=== PATIENT | female | born 1940 | race American Indian/Alaskan Native ===

== ENCOUNTER 2020-08-15 10:49 | Outpatient (CLI) | payer MEDICARE ==
--- NOTE | 2020-08-15 13:30 | Magnetic Resonance Report ---
Bilateral breast MR without and with contrast. History: Recently diagnosed left breast malignancy, assess extent of disease. Recent benign left 12:0 0 biopsies of breast x2. Comparison: We have outside reports from ultrasound guided biopsy performed 07/19/2020 and stereotact ic biopsy performed 07/19/2020. No images are available at this time. Technique: Multiplanar multisequence MR images of the breast were obtained before and after the intra venous administration of intravenous contrast. Post processing analysis and review was performed on a separate computer workstation. Findings: Breast composition is heterogenously dense. There is marked background parenchymal enhancement which decreases the sensitivity of MRI. Patient has known biopsy-proven findings consistent with diabetic m astopathy. The which can cause diffuse parenchymal enhancement which can be difficult to distinguish from carcinoma. LEFT BREAST: Focal area of enhancement with adjacent biopsy artifact in the superior central posterio r left breast measures up to 1.1 x 0.9 x 1.3 cm. This would appear to correspond with the site of filemon reotactic biopsy which was performed at an outside facility which revealed invasive ductal carcinoma. Additionally, the patient is reported to have underwent two benign biopsies of the left breast at th e 12:30 position (9 cm and 5 cm from the nipple). Although, the clip artifact in these regions is dif ficult to definitely identified. There are confluent areas of low level enhancement throughout the le ft breast which is most consistent with parenchymal enhancement, possibly is accentuated due to diabe tic mastopathy. This is most pronounced within the superior and upper inner breast. RIGHT BREAST: Confluent areas of scattered parenchymal enhancement and multiple scattered enhancing f oci are present. There is a focal more circumscribed oval area of enhancement within the right upper outer posterior breast. This measures 1.6 x 0.9 x 1.5 cm. No abnormal axillary or internal mammary lymph nodes. Impression: Focal area of malignant-appearing enhancement in the left superior central posterior breast measures up to 1.3 cm on MRI. An associated biopsy marker is noted and this would appear to correspond with th e site of recent stereotactic biopsy at an outside facility which revealed invasive ductal carcinoma. No additional suspicious findings in the left breast, however evaluation is limited due to the marke d background parenchymal enhancement. 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 The can cause diffuse parenchymal enhancement which can be difficult to d istinguish from carcinoma. Located within the right upper outer breast is a 1.6 cm oval circumscribed enhancing lesion. A target ed ultrasound is recommended for further evaluation with possible subsequent ultrasound-guided biopsy . For localization purposes, the right breast should be scanned focused around the 10:00 position, 9 cm from the nipple. If no sonographic correlate is identified, an MRI guided biopsy would be recommen ded. BIRADS 0: Incomplete--Needs Additional Imaging Evaluation. Signer Name: Jacinto Jean MD Signed: 08/15/2020 1:30 PM Workstation Name: [id number]
== END 2020-08-15 10:50 | disposition home or self-care (01) ==
LOC: SPVIMAG 10:49
PROVIDERS: ATTEND Surgery
DX: C50.412 Malignant neoplasm of upper-outer quadrant of left female breast (principal)
CPT/HCPCS: A9577; C8908; 77049

== ENCOUNTER 2020-09-05 14:26 | Outpatient (CLI) | payer MEDICARE ==
--- NOTE | 2020-09-05 15:41 | Ultrasound Report ---
RIGHT BREAST ULTRASOUND LIMITED INDICATION: Evaluate finding noted previously in the right breast on MRI. COMPARISON: 08/15/2020. FINDINGS: Targeted ultrasound of the right upper outer breast was performed to evaluate the site of a previously noted finding which was seen in this region on the recent screening mammogram. Located at the 10:00 position, 9 cm from the nipple, is a partially circumscribed oval 8 x 9 x 4 mm hypoechoic solid-appearing mass. This would appear to correspond with the location and morphology of the MRI fin ding seen in this region on the recent breast MRI. The surrounding tissue was scanned and shows some vague shadowing hypoechoic areas but no discrete mass. These were difficult to reproduce. The appeara nce may reflect some degree of diabetic mastopathy which the patient is reported to have. IMPRESSION: Right breast lesion at the 10:00 position appears to correspond with the enhancing lesion seen on martha ast MRI. An ultrasound-guided biopsy is planned for later this same day. Findings and recommendations were discussed with patient the conclusion of the exam by Dr. Jean. BI-RADS Category 4: Suspicious for Malignancy. Signer Name: Jacinto Jean MD Signed: 09/05/2020 3:36 PM Workstation Name: [id number]
--- NOTE | 2020-09-05 16:00 | Ultrasound Report ---
ULTRASOUND-GUIDED CORE NEEDLE BIOPSY Right BREAST WITH CLIP PLACEMENT INDICATION: Right breast lesion at the 10:00 position. FINDINGS: Informed consent was obtained. The lesion within the right breast at the 10:00 position was identifie d with ultrasound. The overlying skin was cleansed with chloro prep and local anesthesia was obtained with a 1% lidocaine solution. Under ultrasound guidance a 14-gauge spring loaded core biopsy needle was advanced to the lesion. A total of 4 core samples were obtained. A U-shaped biopsy marker was jered radha to roshan the site of the biopsy. Specimen samples were placed in formalin and sent to pathology fo r analysis. Patient tolerated the procedure well and no immediate complications were identified. IMPRESSION: Technically successful ultrasound-guided core biopsy of right breast lesion at the 10:00 position wit h placement of a U-shaped biopsy marker. An addendum will be added to this report once pathology results are available. Signer Name: Jacinto Jean MD Signed: 09/05/2020 3:56 PM Workstation Name: [id number]
--- NOTE | 2020-09-05 16:02 | Mammography Report ---
RIGHT DIAGNOSTIC MAMMOGRAM INDICATION: Status post right breast ultrasound-guided biopsy at the 10:00 position. COMPARISON: 09/05/2020, 08/15/2020. FINDINGS: Right breast CC and ML projection mammograms were obtained. These document a U-shaped biops y marker at the 10:00 position at site of recent ultrasound-guided biopsy. IMPRESSION: Right breast mammographic images documenting location of a U-shaped biopsy marker at the 10:00 positi on (site of recent ultrasound-guided core biopsy). BI-RADS Category 4: Suspicious for Malignancy. Signer Name: Jacinto Jean MD Signed: 09/05/2020 3:58 PM Workstation Name: [id number]
== END 2020-09-05 14:27 | disposition home or self-care (01) ==
LOC: SPVWC 14:26
PROVIDERS: ATTEND Surgery
DX: N63.11 Unspecified lump in the right breast, upper outer quadrant (principal); R92.8 Other abnormal and inconclusive findings on diagnostic imaging of breast; N60.81 Other benign mammary dysplasias of right breast; N64.89 Other specified disorders of breast
CPT/HCPCS: 88305

== ENCOUNTER 2020-10-08 07:49 | Day surgery (SDC) | payer MEDICARE ==
[~2020-10-08 07:49] MED LIST: ceFAZolin/Water 2 GM/20 ML 2 GM/20 ML SYRINGE IV NR
[2020-10-08] MEDS ORDERED: HYDROmorphone 1 MG/1 ML INJ IV PRN ×2 (08:32)
[2020-10-08] MEDS ORDERED: fentaNYL 100 MCG/2 ML INJ IV NR (08:39)
--- NOTE | 2020-10-08 08:40 | Anesthesia Day of Surgery ---
Anesthesia Day of Surgery - Day of Surgery Patient Examined: Yes Patient H&P Reviewed: Yes Patient is NPO: Yes
--- NOTE | 2020-10-08 08:44 | Anesthesia Consultation ---
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
[2020-10-08] MEDS ORDERED: LIDOCAINE (1%) 10 MG/1 ML VIAL 20 ML MDV ONE (08:45)
[2020-10-08] MEDS ORDERED: ONDANSETRON 4 MG/2 ML INJ IV PRN (09:00)
[2020-10-08] MEDS ORDERED: MIDAZOLAM 2 MG/2 ML INJ IV NR (09:00)
[2020-10-08] MEDS ORDERED: LACTATED RINGERS 1,000 ML IV SCH (09:00)
[2020-10-08] MEDS ORDERED: BUPIVACAINE/PF (0.25%) 2.5 MG/ML 30 ML VIAL INFILTRATI ONE (09:45)
--- NOTE | 2020-10-08 10:51 | Short Stay Summary ---
Short Stay Documentation Date of service: 10/08/20 - History H&P: obtained from office - Allergies and Medications Current Medications: Allergies No Known Allergies Allergy (Unverified 10/02/20 08:19) Home Medications Medication Instructions Recorded Confirmed Last Taken Type Insulin Degludec/Liraglutide 16 unit SQ HS 10/03/20 10/03/20 10/07/20 History [Xultophy 100 Unit-3.6MG/ml Pen] Metoprolol [Lopressor TAB] 75 mg PO BID 10/03/20 10/08/20 10/08/20 06:00 History Potassium Chloride [K-Dur] 10 meq PO QDAY 10/03/20 10/03/20 10/07/20 History Rosuvastatin Calcium [Crestor] 10 mg PO HS 10/03/20 10/03/20 10/07/20 History Telmisartan/Amlodipine 1 tab PO DAILY 10/03/20 10/03/20 10/07/20 History [Telmisartan-Amlodipine 80-10] hydroCHLOROthiazide [HCTZ] 25 mg PO QDAY 10/03/20 10/03/20 10/07/20 History metFORMIN [Glucophage] 500 mg PO BID 10/03/20 10/03/20 10/07/20 History Active Medications Hydromorphone HCl (Hydromorphone 1 Mg/1 Ml Inj) 0.25 mg IV Q10MIN PRN PRN Reason: Pain, Moderate (4-6) Stop: 10/08/20 20:00 Hydromorphone HCl (Hydromorphone 1 Mg/1 Ml Inj) 0.5 mg IV Q10MIN PRN PRN Reason: Pain , Severe (7-10) Stop: 10/08/20 22:00 Cefazolin Sodium (Ancef/Sterile Water 2 Gm/20 Ml) 2 gm in 20 mls @ 80 mls/hr IV PREOP NR; Protocol Stop: 10/08/20 20:00 Lactated Ringer's (Lactated Ringers) 1,000 mls @ 125 mls/hr IV DIRECT SANJUANITA Last Admin: 10/08/20 09:38 Dose: 125 mls/hr Documented by: Midazolam HCl (Midazolam 2 Mg/2 Ml Inj) 2 mg IV PREOP NR Stop: 10/08/20 23:59 Last Admin: 10/08/20 09:38 Dose: 2 mg Documented by: Ondansetron HCl (Ondansetron 4 Mg/2 Ml Inj) 4 mg IV ONCE PRN PRN Reason: Nausea And Vomiting Stop: 10/08/20 13:00 - Brief post op/procedure progress note Date of procedure: 10/08/20 Pre-op diagnosis: Left upper outer quadrant breast cancer Post-op diagnosis: same Procedure: Left needle localization partial mastectomy of upper outer quadrant Anesthesia: GETA Findings: Left wire and clip present; x2 sln Surgeon: MUSA MORALES Estimated blood loss: minimal Pathology: list (left partial mastectomy; x sln) Specimen disposition: to lab Condition: stable - Disposition Condition at discharge: Good Disposition: DC-01 TO HOME OR SELFCARE Short Stay Discharge Plan Activity: other (no heavy lifting) Diet: regular Wound: keep clean and dry (wear breast binder; may shower in 48 hours; no baths) Additional Instructions: APPOINTMENT -DR MORALES WANTS TO SEE YOU IN 7 DAYS. CALL FOR APPOINTMENT AND FOR ANY QUESTIONS OR CONCERNS RELATED TO YOUR SURGERY. ACTIVITY - NO HEAVY LIFTING WITH RIGHT ARM DIET- REGULAR. WOUND- DO KEEP INCISION SITE CLEAN AND DRY. MAY SHOWER AFTER 2 DAYS. NO TUB BATHS. DO WEAR BREAST BINDER AT ALL TIMES (EXCEPT WHEN SHOWERING) UNTIL YOU SEE DR MORALES. PRESCRIPTION GIVEN FOR PAIN TAKE DIRECTED. Follow up with: MUSA MORALES MD [Staff Physician] - 7 Days Forms: Outpatient Surgery DC Inst. Prescriptions: oxyCODONE /ACETAMINOPHEN [Percocet 5/325] 1 tab PO Q6HR PRN #15 tablet PRN Reason: Pain
--- NOTE | 2020-10-08 10:54 | Operative Report ---
Operative Report Operative Report: Operative Report: October 08, 2020 Preoperative diagnosis: Left breast cancer of the upper outer quadrant Postoperative diagnosis: Same Procedure: Left needle localization partial mastectomy of the upper outer quadrant and SLNB Surgeon: Marielle Lackey MD [employer] Instructor: Kasandra Alaniz MD Anesthesia: General Findings: Left wire and clip present within radiograph specimen; x2 SLN Complications: None EBL: Minimal (less than 50 cc) Disposition: PACU in good condition Indications for operative procedure: This is a 79 year old lady with newly diagnosed left breast cancer of the upper outer quadrant, Stage I [id number] ER 5% and Her-2 positive (around 2:00 position posterior depth). Recommendations are to proceed with breast conservation. Radiology place wire at area of cancer. She understands the role of adjuvant radiation therapy and adjuvant chemotherapy given HER-2 positive breast cancer. She wished to proceed with the above procedure. Procedure in detail: The patient was taken to radiology for wire placement for localization of known area of cancer. Anesthesia placed left pectoral block. Patient was then taken to the operating room. Gen. anesthesia was administered. The left nipple was injected with radioisotope and 1 cc of methylene blue dye. Left breast and axilla were prepped and draped in the normal sterile operative fashion. The wire was identified. Timeout was performed. Gamma probe was inserted into the axilla. The area of hot spot was identified. A left axillary incision was made with a 15 blade knife with dissection taken down to the subcutaneous tissues. The axillary fascia was opened with the Bovie cautery. 2 SLNs were identified. All remaining counts were less than 10% of the highest count. Lymph node was sent to pathology for permanent processing. Hemostasis was obtained in the right axillary cavity. Axillary cavity was appropriately irrigated and suctioned. Hemostasis was noted. Axillary fascia was approximated and closed using interrupted 3-0 Vicryl and the skin brought together and closed using a running 4-0 Monocryl followed by skin affix. Attention was then taken towards the left breast. Lateral breast of upper outer quadrant incision was made with a 15 blade knife and dissection taken down to subcutaneous tissues. First began raising of the superior flap with removal of the wire from the skin with dissection taken down to the pectoralis muscle past the area of known malignancy, followed by raising of the inferior flap, medial flap and lateral flap with all flaps taken down to the pectoralis muscle and past the area of known malignancy. Significant fibrotic tissue was present that may represent history of diabetic mastitis. The breast area of concern was appropriately removed posteriorly from the pectoralis muscle with the aid of the Bovie cautery. The wire was not encountered. Specimen was marked and then sent to pathology and radiology; radiograph specimen with wire and clip present (additional clip present as well from prior biopsy at 12:00 position). Breast cavity was irrigated and hemostasis was obtained. The posterior deep breast tissues were approximated and closed using interrupted 3-0 Vicryl. The subcutaneous tissues were approximated and closed using interrupted 3-0 Vicryl followed by closing of the skin with a running 4-0 Monocryl and skin affix. The patient tolerated surgery very well and she was awaken from anesthesia without any complication and transported to PACU in good condition.
[2020-10-08] MEDS ORDERED: ONDANSETRON 4 MG/2 ML INJ ONE (11:02)
[2020-10-08] MEDS ORDERED: LIDOCAINE MPF (2%) 20 MG/1 ML VIAL 5 ML ONE (11:02)
[2020-10-08] MEDS ORDERED: propofoL 200 MG/20 ML VIAL IV ONE (11:03)
[2020-10-08] MEDS ORDERED: fentaNYL 100 MCG/2 ML INJ ONE (11:03)
--- NOTE | 2020-10-08 11:12 | Mammography Report ---
LEFT BREAST NEEDLE LOCALIZATION USING LEFT GUIDANCE The procedure was explained to the patient and informed consent obtained. PROCEDURE: Using 3 mL of 1% buffered lidocaine, a 25 gauge needle and x-ray guidance, the posterior left breast lesion containing a biopsy clip was localized with standard needle/wire technique. There were no immediate complications. INTERPRETATION: 2 images made during the procedure demonstrate the needle to be properly positioned. IMPRESSION: Successful left breast lesion localization as described above. Thank you for allowing us to participate in the care of your patient. Signer Name: Manoj Almodovar Jr, MD Signed: 10/08/2020 11:07 AM Workstation Name: [id number]
[2020-10-08] MEDS ORDERED: WATER FOR IRRIG STERILE 1,500 ML BOTTLE IR ONE (11:51)
[2020-10-08] MEDS ORDERED: METHYLENE BLUE 50 MG/10 ML AMP IV ONE (11:52)
[2020-10-08] MEDS ORDERED: SODIUM CHLORIDE 0.9% P/F 10 ML VIAL IV ONE (11:53)
[2020-10-08] MEDS ORDERED: PHENYLEPHRINE/NS 1,000 MCG/10 ML SYRINGE (OR USE) IV ONE (13:37)
[2020-10-08 15:31] VITALS: BP 136/63
--- NOTE | 2020-10-08 15:58 | Mammography Report ---
MAMMOGRAPHY SURGICAL SPECIMEN HISTORY: Post excisional biopsy COMPARISON: Needle localization performed earlier today. FINDINGS: A single image of the specimen containing the spiculated lesion, biopsy clip and localizati on wire is presented. A second smaller biopsy clip is noted along the right lateral margin of the spe cimen. Please correlate with the formal report from pathology. IMPRESSION: Successful excisional biopsy. Signer Name: Manoj Almodovar Jr, MD Signed: 10/08/2020 3:54 PM Workstation Name: [id number]
--- NOTE | 2020-10-08 16:29 | Post Anesthesia Evaluation ---
- Post Anesthesia Evaluation Patient Participated: Yes Airway Patent: Yes Stable Respiratory Function: Yes Nausea/Vomiting: No Temp > 96.8F: Yes Pain Manageable: Yes Adequeate Hydration: Yes Anesthesia Complications: No Block Receding Appropriately: Yes Patient on Ventilator: No
== END 2020-10-08 07:50 | disposition home or self-care (01) ==
LOC: OR 07:49
PROVIDERS: ATTEND Surgery
DX: C50.412 Malignant neoplasm of upper-outer quadrant of left female breast (principal); I89.8 Other specified noninfective disorders of lymphatic vessels and lymph nodes; E78.00 Pure hypercholesterolemia, unspecified; I10 Essential (primary) hypertension; E66.9 Obesity, unspecified; E11.9 Type 2 diabetes mellitus without complications; E06.9 Thyroiditis, unspecified; Z86.19 Personal history of other infectious and parasitic diseases; Z17.1 Estrogen receptor negative status [ER-]; Z79.899 Other long term (current) drug therapy; Z87.891 Personal history of nicotine dependence; Z79.4 Long term (current) use of insulin; Z98.49 Cataract extraction status, unspecified eye; Z90.710 Acquired absence of both cervix and uterus; Z98.890 Other specified postprocedural states; Z68.35 Body mass index [BMI] 35.0-35.9, adult
CPT/HCPCS: 19281; 19301; 38525; 38792; 76098; 78800; 82962; 88307; A9541; J0690; J2250; J2370; J2405; J2704; J3010; J7120; Q9968; U0003; 64450; 88333; 88342

== ENCOUNTER 2021-05-02 10:10 | Outpatient (CLI) | payer MEDICARE ==
--- NOTE | 2021-05-02 10:53 | Mammography Report ---
DIGITAL DIAGNOSTIC MAMMOGRAM WITH CAD, 05/02/2021 INDICATION: The patient has a personal history of left breast cancer treated with lumpectomy and radi ation. She reports no new symptoms. TECHNIQUE: Digital bilateral mammographic imaging was performed. This examination was interpreted with the benefit of Computer-aided Detection analysis. COMPARISON: Bilateral mammogram, 05/11/2020 from [facility] FINDINGS: Breast Density: The breasts are heterogeneously dense, which may obscure small masses. There is no evidence of dominant mass, suspicious calcifications or architectural distortion in eithe r breast. Interval post lumpectomy and post radiation findings are noted in the left breast. No new or suspicious mammographic finding identified in either breast. IMPRESSION: Follow up recommendation: Routine yearly BI-RADS Category 2: Benign. A "normal" or negative report should not discourage follow up or biopsy of a clinically significant f inding. A written summary of these findings will be mailed to the patient. The patient will be entered into a mammography reporting system which will generate a reminder letter for the patient's next appointmen t at the appropriate interval. According to the [employer], yearly mammograms are recommended starting at age 40 and continuing as long as a woman is in good health. Breast MRI is recommended for women with an ozzie roximately 20-25% or greater lifetime risk of breast cancer, including women with a strong family his tory of breast or ovarian cancer and women who have been treated for Hodgkin's disease. Signer Name: Kayleigh Wan MD Signed: 05/02/2021 10:48 AM Workstation Name: [id number]
== END 2021-05-02 10:11 | disposition home or self-care (01) ==
LOC: SPVWC 10:10
PROVIDERS: ATTEND Surgery
DX: R92.8 Other abnormal and inconclusive findings on diagnostic imaging of breast (principal); Z85.3 Personal history of malignant neoplasm of breast
CPT/HCPCS: 77066